=== PATIENT | female | born 1985 | race Caucasian/White ===

== ENCOUNTER 2020-12-25 18:26 | Emergency (ER) | payer OTHER ==
[~2020-12-25] VITALS: Ht 167.6 cm; Wt 59.9 kg
[2020-12-25 18:43] VITALS: Ht 167.6 cm; Wt 59.9 kg
[2020-12-25 21:42] VITALS: BP 105/66
== END 2020-12-25 21:42 | disposition home or self-care (01) ==
LOC: ED 18:26
DX: S01.81XA Laceration without foreign body of other part of head, initial encounter (principal); Z88.2 Allergy status to sulfonamides; V00.131A Fall from skateboard, initial encounter; Y93.51 Activity, roller skating (inline) and skateboarding; Y92.89 Other specified places as the place of occurrence of the external cause; Y99.8 Other external cause status
CPT/HCPCS: 90715